=== PATIENT | male | born 1970 | race Caucasian/White ===

== ENCOUNTER 2017-11-12 15:16 | Emergency (ER) | payer OTHER, SELFPAY ==
[2017-11-12 15:30] VITALS: BP 136/87; PULSE 67; RESP 18; TEMP 36.2; O2SAT 97; BMI 26.9
[2017-11-12 16:35] LABS: Add Manual Diff / Slide Review NO; Basophils Percent Auto 1.2 % (0-2); Eosinophils Percent Auto 2.3 % (2-4); Hematocrit 45.3 % (41-53); Hemoglobin 15.5 g/dL (13.5-17.5); Lymphocytes Percent Auto 30.7 % (25-40); Mean Corpuscular HGB Conc 34.2 % (30-36); Mean Corpuscular Hemoglobin 30.4 PG (26-34); Mean Corpuscular Volume 88.8 fL (80-100); Monocytes Percent Auto 6.7 % (3-14); Neutrophils Absolute Auto 3600 /uL (3000-5900); Neutrophils Percent Auto 59.1 % (50-75); Platelet Count 265 X10^3/uL (150-400); Red Cell Distribution Width 13.2 % (11.6-14.8); White Blood Cell Count 6.1 X10^3/uL (4.5-11.0)
[2017-11-12 16:38] LABS: Alanine Aminotransferase 25 IU/L (21-72); Albumin 4.7 g/dL (3.5-5.0); Albumin Globulin Ratio 1.7 (1.0-2.8); Alkaline Phosphatase 56 U/L (38-126); Aspartate Aminotransferase 17 IU/L (17-59); Bilirubin Total 0.4 mg/dL (0.2-1.3); Blood Urea Nitrogen 8 mg/dL (9-20); Calcium 9.6 mg/dL (8.4-10.2); Carbon Dioxide 29 mmol/L (22-32); Chloride 104 mmol/L (98-107); Estimated Glomerular Filt Rate > 60.0 mL/min (>60); Globulin 2.7 g/dL (1.7-4.1); Glucose 90 mg/dL (70-100); HEMOLYSIS < 15 (0-50); Lipase 55 U/L (23-300); Potassium 4.2 mmol/L (3.4-5.1); Sodium 143 mmol/L (137-145); Total Protein 7.4 g/dL (6.3-8.2)
[2017-11-12] MEDS: SODIUM CHLORIDE 0.9% 1,000 ML 1000 ML IV (20:06)
[2017-11-12 20:10] VITALS: BP 151/101; PULSE 60; RESP 14; TEMP 36.9; O2SAT 99
[2017-11-12 20:18] LABS: Bacteria Urine None Seen; RBC Urine None Seen (0-5/HPF); WBC Urine None Seen (0-5/HPF)
--- NOTE | 2017-11-12 20:54 | DI.CT.S_ITS ---
PROCEDURE: CT ABDOMEN PELVIS W CON INDICATIONS: RIGHT LOWER QUADRANT PAIN TECHNIQUE: After the administration of intravenous contrast, 5 mm thick sections acquired from the diaphragm to the symphysis. 5 mm coronal and sagittal reformats were acquired. For radiation dose reduction, the following was used: automated exposure control, adjustment of mA and/or kV according to patient size. COMPARISON: None. FINDINGS: Image quality: Excellent. ABDOMEN: Lung bases: There is mild dependent atelectasis bilaterally. Heart size is normal. Solid organs: No focal hepatic lesions identified. Gallbladder appears within normal limits without calcified gallstones. Biliary system is non dilated. Pancreas enhances normally. Spleen is normal in size and enhancement. No adrenal nodules. Kidneys demonstrate normal size and enhancement, without hydronephrosis. Peritoneum and bowel: Bowel loops demonstrate normal wall thickness and caliber. The appendix is normal in appearance. There is mild fluid distention of a few distal small bowel loops with scattered air-fluid levels which may reflect a mild gastroenteritis. No free fluid or air. Nodes and vessels: No retroperitoneal or mesenteric adenopathy by size criteria. Aorta and inferior vena cava are normal in size. Miscellaneous: No ventral hernias. PELVIS: Genitourinary: Bladder wall thickness is normal. Miscellaneous: No inguinal hernias or adenopathy. Bones: No suspicious bony lesions. No vertebral body compression fractures. IMPRESSION: 1. No evidence of acute appendicitis. 2. Mild fluid distention of a few distal small bowel loops with scattered air-fluid levels may reflect a mild gastroenteritis. Dictated by: Janes Cross M.D. on 11/12/2017 at 21:51 Approved by: Janes Cross M.D. on 11/12/2017 at 21:54
--- NOTE | 2017-11-12 21:02 | ED_ITS ---
HPI - Abdominal Pain General Chief Complaint: Abdominal Pain Stated Complaint: POWER LOWER RIGHT SIDE Time Seen by Provider: 11/12/17 18:10 Source: patient Mode of arrival: ambulatory Limitations: no limitations History of Present Illness HPI narrative: patient is a 46-year-old male who presents with right lower quadrant pain ongoing for the last 8 days. It is nonradiating fairly persistent. He has had decreased appetite over the past couple of days. No hematuria no nausea vomiting or diarrhea. 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 It does hurt with breathing but not necessarily with movement. pain has not migrated MD complaint: abdominal pain Onset (ago): day(s) (8) Pain Consistency: constant Location: RLQ Quality: stabbing Radiation: none Related Data Home Medications Medication Instructions Recorded Confirmed oxycodone-acetaminophen [Percocet] 1 tab PO TID #0 08/11/12 11/12/17 albuterol sulfate [ProAir HFA] 1 puff INHALATION DIRECTED 11/12/17 11/12/17 zolpidem 3 tab PO BEDTIME 11/12/17 11/12/17 Allergies Allergy/AdvReac Type Severity Reaction Status Date / Time soy Allergy Hives Verified 11/12/17 15:51 SULFA Allergy Mild RASH Uncoded 11/12/17 15:50 Review of Systems Review of Systems GENERAL: Denies chills, fatigue, malaise, fever, sweats, travel HEENT: Denies sinus pain, ear pain, sore throat, difficulty swallowing, neck pain RESPIRATORY: Denies dyspnea, cough, wheezing, hemoptysis, sputum. CARDIOVASCULAR: Denies chest pain, palpitations, orthopnea, edema GASTROINTESTINAL: see HPI : Denies dysuria, frequency, incontinence, hematuria, urinary retention, flank pain. MUSCULOSKELETAL: Denies weakness, joint pain, or bony pain SKIN: No rash, no erythema, no pruritus NEUROLOGIC: Denies weakness, dizziness, headache, numbness, change in speech, confusion PSYCHIATRIC: No concerning psychosocial issues. 12 point review of systems is negative except for those stated above and HPI PFSH Medical History Chronic low back pain (Acute) Spinal stenosis (Acute) Surgical History H/O vasectomy (Acute) Social History Smoking Status: Former smoker Exam Initial Vital Signs Initial Vital Signs: Vital Signs Temperature 97.2 F L 11/12/17 15:30 Pulse Rate 67 11/12/17 15:30 Respiratory Rate 18 11/12/17 15:30 Blood Pressure 136/87 H 11/12/17 15:30 Pulse Oximetry 97 11/12/17 15:30 GENERAL: sitting up no acute distress HEENT: Head atraumatic,EOMI, pupils reactive, neck is supple CARDIOVASCULAR: Regular rate and rhythm without murmurs, rubs or gallops. RESPIRATORY: Breath sounds equal bilaterally, no wheezes rales or rhonchi. ABDOMEN: Soft, Right lower quadrant pain without guarding or rebound no flank pain negative Lu sign : No CVA tenderness EXTREMITIES: Normal range of motion, no clubbing or edema. Neurovascularly intact NEUROLOGICAL: Alert and oriented x4.Normal gait and speech. SKIN: Warm, dry, no laceration, no petechiae, no rashes or lesions. Course Orders Ordered: ED Orders 11/12/17 20:54 CT abdomen pelvis w con Stat Discontinued Medications Sodium Chloride (Normal Saline 0.9%) 1,000 mls @ 150 mls/hr IV CONT BRICE Last Infusion: 11/12/17 21:18 Dose: 0 mls/hr Admin: 11/12/17 20:06 Dose: 1,000 mls/hr Vital Signs - 8 hr 11/12/17 22:18 Pulse Rate 61 Respiratory Rate 16 Blood Pressure [Left Arm] 150/97 H Pulse Oximetry 100 MDM - Abdominal Pain Lab Data Attestation: I reviewed the patient's lab results. Result diagrams: 11/12/17 16:15 11/12/17 16:15 Lab Results 11/12/17 11/12/17 11/12/17 Range/Units 16:15 16:15 19:45 WBC 6.1 (4.5-11.0) X10^3/uL RBC 5.10 (4.5-5.9) X10^6/uL Hgb 15.5 (13.5-17.5) g/dL Hct 45.3 (41-53) % MCV 88.8 (80-100) fL MCH 30.4 (26-34) PG MCHC 34.2 (30-36) % RDW 13.2 (11.6-14.8) % Plt Count 265 (150-400) X10^3/uL Neut % (Auto) 59.1 (50-75) % Lymph % (Auto) 30.7 (25-40) % [place] % (Auto) 6.7 (3-14) % Eos % (Auto) 2.3 (2-4) % Baso % (Auto) 1.2 (0-2) % Neut # (Auto) 3600 (2129-2482) /uL Sodium 143 (137-145) mmol/L Potassium 4.2 (3.4-5.1) mmol/L Chloride 104 (98-107) mmol/L Carbon Dioxide 29 (22-32) mmol/L BUN 8 L (9-20) mg/dL Creatinine 0.80 (0.66-1.25) mg/dL Estimated GFR > 60.0 (>60) mL/min BUN/Creatinine Ratio 10.0 (6-22) Glucose 90 (70-100) mg/dL Calcium 9.6 (8.4-10.2) mg/dL Total Bilirubin 0.4 (0.2-1.3) mg/dL AST 17 (17-59) IU/L ALT 25 (21-72) IU/L Alkaline Phosphatase 56 (38-126) U/L Total Protein 7.4 (6.3-8.2) g/dL Albumin 4.7 (3.5-5.0) g/dL Globulin 2.7 (1.7-4.1) g/dL Albumin/Globulin Ratio 1.7 (1.0-2.8) Lipase 55 (23-300) U/L Urine Color Yellow Urine Appearance Clear Urine pH 7.0 (4.5-8.0) Ur Specific [place] 1.010 (1.000-1.035) Urine Protein Negative (Negative) Urine Glucose (UA) Negative (Normal) g/dL Urine Ketones Negative (NEGATIVE) Urine Occult Blood Negative (Negative) Urine Nitrate Negative (Negative) Urine Bilirubin Negative (NEGATIVE) Urine Urobilinogen 0.2 (0.2) E.U./dL Ur Leukocyte Esterase Negative (NEGATIVE) Urine RBC None seen (0-5/HPF) Urine WBC None seen (0-5/HPF) Urine Bacteria None seen (None) Ur Culture Indicated? Not Reportable Micro UA Comment Not Reportable Imaging Data CT scan - abdomen: Radiologist's impression: PROCEDURE: CT ABDOMEN PELVIS W CON INDICATIONS: RIGHT LOWER QUADRANT PAIN TECHNIQUE: After the administration of intravenous contrast, 5 mm thick sections acquired from the diaphragm to the symphysis. 5 mm coronal and sagittal reformats were acquired. For radiation dose reduction, the following was used: automated exposure control, adjustment of mA and/or kV according to patient size. COMPARISON: None. FINDINGS: Image quality: Excellent. ABDOMEN: Lung bases: There is mild dependent atelectasis bilaterally. Heart size is normal. Solid organs: No focal hepatic lesions identified. Gallbladder appears within normal limits without calcified gallstones. Biliary system is non dilated. Pancreas enhances normally. Spleen is normal in size and enhancement. No adrenal nodules. Kidneys demonstrate normal size and enhancement, without hydronephrosis. Peritoneum and bowel: Bowel loops demonstrate normal wall thickness and caliber. The appendix is normal in appearance. There is mild fluid distention of a few distal small bowel loops with scattered air-fluid levels which may reflect a mild gastroenteritis. No free fluid or air. Nodes and vessels: No retroperitoneal or mesenteric adenopathy by size criteria. Aorta and inferior vena cava are normal in size. Miscellaneous: No ventral hernias. PELVIS: Genitourinary: Bladder wall thickness is normal. Miscellaneous: No inguinal hernias or adenopathy. Bones: No suspicious bony lesions. No vertebral body compression fractures. IMPRESSION: 1. No evidence of acute appendicitis. 2. Mild fluid distention of a few distal small bowel loops with scattered air- fluid levels may reflect a mild gastroenteritis. Dictated by: Janes Cross M.D. on 11/12/2017 at 21:51 MDM Narrative Medical decision making narrative: patient appears nontoxic. He has had pain ongoing for the last 8 days nose symptoms of nausea vomiting or diarrhea. This does seem to be worse with deep breathing and some movements. Possibly abdominal strain. CT suggest mild gastroenteritis however he does not have those symptoms. It was negative for appendicitis. I discussed all findings with the patient. Education has been performed regarding treatment plan, diagnosis, warning signs and symptoms and all concerns have been addressed. Verbally agree with and understood all of the above. Discharge Plan Departure Patient Disposition: Home, Self-Care Clinical Impression: Abdominal wall strain Discharge Date/Time: 11/12/17 22:24 Interventions: ED Discharge Assessment Last Done: 11/12/17 22:24 Instructions: DI for Abdominal Muscle Strain Activity Restrictions/Additional Instructions: *You have been diagnosed with abdominal pain *What to do: possibly virus versus is all muscle strain. Blood work and CT and they are negative *Continue to take medications as directe *Follow up with your primary care provider in 2-3 days *Return to ER if you should have any new, worsening or concerning symptoms Prescriptions: No Action oxycodone-acetaminophen [Percocet] 5 MG/325 MG tablet 1 tab PO TID Qty: 0 RF: 0 zolpidem 5 mg tablet 3 tab PO BEDTIME RF: 0 albuterol sulfate [ProAir HFA] 90 mcg/actuation HFA aerosol inhaler 1 puff Inhalation DIRECTED RF: 0
[2017-11-12 21:04] LABS: Appearance Urine UA CLEAR; Bilirubin Urine UA NEGATIVE (NEGATIVE); Color Urine UA YELLOW; Glucose Urine UA NEGATIVE (Normal); Ketones Urine UA NEGATIVE (NEGATIVE); Leukocyte Esterase Urine UA NEGATIVE (NEGATIVE); Nitrite Urine UA Negative (Negative); Occult Blood Urine UA NEGATIVE (Negative); Protein Urine UA NEGATIVE (Negative); Urobilinogen Urine UA 0.2 E.U./dL (0.2)
[2017-11-12 22:18] VITALS: BP 150/97; PULSE 61; RESP 16; O2SAT 100
== END 2017-11-12 22:24 | disposition home or self-care (01) ==
PROVIDERS: Emergency Medicine; Emergency Provider Emergency Medicine; Family Provider Family Medicine; PCP Family Medicine
DX: S39.011A Strain of muscle, fascia and tendon of abdomen, initial encounter (principal)
CPT/HCPCS: 36591; 74177; 80053; 81001; 83690; 85025; 96360; 99283; 99284; Q9967

== ENCOUNTER 2020-06-03 12:31 | Emergency (ER) | payer OTHER, SELFPAY ==
[2020-06-03 12:55] VITALS: BP 164/92; PULSE 66; RESP 12; TEMP 36.1; O2SAT 100; BMI 23.7
--- NOTE | 2020-06-03 14:18 | PC.NURSE ---
Reports history of hemmorhoids 4 and 10 years ago. Strenuous activity over the weekend before symptoms started. Pt states he has tried all over the counter options with no relief.
--- NOTE | 2020-06-03 14:20 | ED_ITS ---
HPI - Skin/Abscess/Foreign Bdy <ROSALINA Landin - Last Filed: 06/03/20 14:31> General Chief complaint: Skin/Abscess/Foreign Body Stated complaint: states hemmrhoids Time Seen by Provider: 06/03/20 13:47 Source: patient Mode of arrival: Ambulatory Limitations: no limitations History of Present Illness HPI narrative: The patient is a 49-year-old male former smoker with history of hemorrhoids who presents with a chief complaint of a hemorrhoid. He states that he noticed it a few days ago, though it might have been present for a while. He states he had 1 removed 10 years ago, had a different one 4 years prior that was also removed. He states he has been using high-fiber, ensuring hydration, and using docusate 2 injuries not strain have bowel movements. He states he is increasingly painful with heavy lifting which he is trying to decrease. He states that he had 1 removed in the emergency department at an outside facility 10 years ago, where they had to ?hold him down to do. Related Data Home Medications Medication Instructions Recorded Confirmed oxycodone-acetaminophen [Percocet] 1 tab PO TID #0 08/11/12 11/12/17 albuterol sulfate [ProAir HFA] 1 puff INHALATION DIRECTED 11/12/17 11/12/17 zolpidem 3 tab PO BEDTIME 11/12/17 11/12/17 Previous Rx's Medication Instructions Recorded hydrocortisone [Proctosol HC] [address] BID-QID PRN 5 Days #30 06/03/20 g prednisone 40 mg PO DAILY 5 Days #10 tab 06/03/20 Allergies Allergy/AdvReac Type Severity Reaction Status Date / Time bee venom protein (honey bee) Allergy Mild Anaphylaxis Verified 06/03/20 13:00 soy Allergy Hives Verified 06/03/20 12:59 SULFA Allergy Mild RASH Uncoded 06/03/20 12:59 Review of Systems <ROSALINA Landin - Last Filed: 06/03/20 14:31> Review of Systems Narrative: GENERAL: Denies chills, fatigue, malaise, fever, sweats. HEENT: Denies sinus pain, ear pain, sore throat, difficulty swallowing, dizziness. RESPIRATORY: Denies dyspnea, cough, wheezing, hemoptysis, sputum. CARDIOVASCULAR: Denies chest pain, palpitations, orthopnea, edema, GASTROINTESTINAL: See HPI : See HPI MUSCULOSKELETAL: denies weakness, joint pain, or bony pain SKIN: Denies rash, skin lesions, or other NEUROLOGIC: Denies weakness, headache, numbness, change in speech, confusion, seizures, incoordination. PSYCHIATRIC: No concerning psychosocial issues. 12 point review of systems is negative except for those stated above Patient History <ROSALINA Landin - Last Filed: 06/03/20 14:31> Medical History Chronic low back pain Spinal stenosis Surgical History H/O vasectomy Social History Smoking Status: Former smoker Smoking Status: Former smoker Substance Use Type: marijuana Exam <ROSALINA Landin - Last Filed: 06/03/20 14:31> Narrative Exam Narrative: GENERAL: This is a well-nourished, well-developed patient, in no acute HEAD: Atraumatic. Normocephalic. No temporal or scalp tenderness. EYES: Pupils equal round and reactive. Extraocular motions intact. No scleral icterus. No injection or drainage. ENT: Nose without bleeding, purulent drainage or septal hematoma. Wearing a mask Airway patent. NECK: Trachea midline. No JVD or lymphadenopathy. Supple, nontender, no meningeal signs. CARDIOVASCULAR: Regular rate and rhythm RESPIRATORY: Clear to auscultation. Breath sounds equal bilaterally. No wheezes, rales, or rhonchi. No cough. No increased respiratory effort. No accessory muscle use. GASTROINTESTINAL: Abdomen soft, non-tender, nondistended. No hepato- splenomegaly, or palpable masses. No guarding. Active bowel sounds all 4 quadrants. Rectal exam with Tamie Camarena RN at bedside. Visible external hemorrhoid at approximately 10:00 a.m., soft to palpation EXTREMITIES: No clubbing, cyanosis, or edema. No joint tenderness, effusion, or edema noted. BACK: Nontender without deformity or crepitance. No flank tenderness. NEURO: AOx3. SKIN: No rash or erythema on visible skin Initial Vital Signs Initial Vital Signs: Vital Signs Temperature 97 F L 06/03/20 12:55 Pulse Rate 66 06/03/20 12:55 Respiratory Rate 12 06/03/20 12:55 Blood Pressure 164/92 H 06/03/20 12:55 Pulse Oximetry 100 06/03/20 12:55 <Diana Vaughn DO - Last Filed: 06/03/20 19:28> Initial Vital Signs Initial Vital Signs: Vital Signs Temperature 97 F L 06/03/20 12:55 Pulse Rate 66 06/03/20 12:55 Respiratory Rate 12 06/03/20 12:55 Blood Pressure 164/92 H 06/03/20 12:55 Pulse Oximetry 100 06/03/20 12:55 Scores <ROSALINA Landin - Last Filed: 06/03/20 14:31> GCS [place] coma scale eye opening: Spontaneous Abbie coma scale verbal response: Orientated Abbie coma scale motor response: Obey commands [place] coma scale total score: 15 Course <ROSALINA Landin - Last Filed: 06/03/20 14:31> Vital Signs Vital signs: Vital Signs - 8 hr 06/03/20 12:55 06/03/20 14:36 Temperature 97 F L Pulse Rate 66 64 Respiratory Rate 12 16 Blood Pressure 164/92 H 164/96 H Pulse Oximetry 100 99 <Diana Vaughn DO - Last Filed: 06/03/20 19:28> Vital Signs Vital signs: Vital Signs - 8 hr 06/03/20 12:55 06/03/20 14:36 Temperature 97 F L Pulse Rate 66 64 Respiratory Rate 12 16 Blood Pressure 164/92 H 164/96 H Pulse Oximetry 100 99 MDM - Skin/Abscess/Foreign Bdy <ROSALINA Landin - Last Filed: 06/03/20 14:31> MDM Narrative Medical decision making narrative: The patient is a 49-year-old male with history of hemorrhoids who presents with a chief complaint of hemorrhoid. It is soft to palpation, not thrombosed. I did discuss at length with the patient use of steroids, Proctosol, follow-up with surgery. He may need a primary care provider referral, so he plans on following up with him. Discussed come back to ER for acute concerns such as abdominal pain with fever, severe rectal bleeding etcetera. Patient has no questions or concerns upon discharge states understanding return precautions as well as follow-up care. Encouraged continued stopped stools, no heavy lifting. Discharge Plan Departure Patient Disposition: Home Clinical Impression: Hemorrhoid Qualifiers: Hemorrhoid type: unspecified Qualified Code(s): K64.9 - Unspecified hemorrhoids Instructions: Hemorrhoids (Alternative Therapy), DI for Hemorrhoids Activity Restrictions/Additional Instructions: Thank you for trusting us with your care today. As discussed, I sent 2 prescriptions to [facility] in [place]. I have attached information regarding hemorrhoids. As discussed, please be sure your stools are soft in avoid heavy lifting. Please come back to emergency department for any acute concerns such as abdominal pain with fever, GI bleeding etcetera Please follow-up with primary care provider. You may benefit from a referral to general surgeon. I have given you contact information to [facility] as well. Prescriptions: New hydrocortisone [Proctosol HC] 2.5 % cream with perineal applicator [address] BID-QID PRN (Reason: hemorrhoids) 5 Days Qty: 30 RF: 0 prednisone 20 mg tablet 40 mg PO DAILY 5 Days Qty: 10 RF: 0 No Action oxycodone-acetaminophen [Percocet] 5 MG/325 MG tablet 1 tab PO TID Qty: 0 RF: 0 zolpidem 5 mg tablet 3 tab PO BEDTIME RF: 0 albuterol sulfate [ProAir HFA] 90 mcg/actuation HFA aerosol inhaler 1 puff Inhalation DIRECTED RF: 0 Referrals: [facility] [Provider Group] Romie Bill MD [Primary Care Provider] - <Diana Vaughn, - Last Filed: 06/03/20 19:28> Cosign ED Attending Abyature Attestation: I was immediately available in the department for consultation. Documentation has been reviewed.
[2020-06-03 14:36] VITALS: BP 164/96; PULSE 64; RESP 16; O2SAT 99
== END 2020-06-03 14:37 | disposition home or self-care (01) ==
PROVIDERS: Emergency Provider Nurse Practitioner Family; Family Provider Family Medicine; PCP Family Medicine
DX: K64.9 Unspecified hemorrhoids (principal)
CPT/HCPCS: 99281

== ENCOUNTER 2021-04-27 15:22 | Emergency (ER) | payer OTHER, SELFPAY ==
[2021-04-27 15:33] VITALS: BP 149/100; PULSE 77; RESP 22; TEMP 36.6; O2SAT 99
--- NOTE | 2021-04-27 15:39 | DI.US.S_ITS ---
PROCEDURE: US SCROTUM INDICATIONS: RIGHT TESTICLE PAIN AND SWELLING TECHNIQUE: Real-time scanning was performed of the scrotum and testicles, with image documentation. Color and pulse Doppler interrogation was performed of both testicles. COMPARISON: None. FINDINGS: Right: Testicle is normal in size at 4.8 x 3.5 x 2.3 cm, and homogenous in echotexture. Increased epididymal vascularity and heterogenous the. Small epididymal cyst measures 2 mm. No hydrocele or varicoceles. Overlying scrotal skin is normal in thickness. Left: Testicle is normal in size at 4.9 x 3.9 x 2.3 cm, and homogeneous in echotexture. Increased epididymal vascularity. Small epididymal cyst measures 0.4 x 1.0 cm. No hydrocele or varicoceles. Overlying scrotal skin is normal in thickness. Doppler: Color and pulse Doppler demonstrate normal and symmetric arterial flow in both testicles. IMPRESSION: Bilateral increased epididymal vascularity in consistent with epididymitis. Small bilateral epididymal cysts Approved by: Fritz Miranda M.D. on 04/27/2021 at 16:01
[2021-04-27 19:22] VITALS: BP 173/92; PULSE 66; O2SAT 100
[2021-04-27] MEDS: DOXYCYCLINE HYCLATE 100 MG TABLET PO (19:51)
--- NOTE | 2021-04-27 21:14 | ED_ITS ---
HPI - Male Genitourinary <RYAN Avalos - Last Filed: 04/27/21 21:26> General Chief complaint: Urogenital-Male Stated complaint: Right testicle hurts Time Seen by Provider: 04/27/21 15:39 Source: patient Mode of arrival: Ambulatory History of Present Illness HPI Narrative: 50-year-old male presents to the emergency department for swollen scrotum and pain which began this morning. Patient reports a history of the same since his vasectomy years ago, and he usually needs to come to the emergency department for antibiotics. Patient reports that this episode is much worse. He denies any recent STI exposure. Patient denies any abdominal pain, groin pain, difficulty urinating, pain with urination, or burning. Patient denies any fever, nausea vomiting or diarrhea. Patient reports he has never had an injection of another medication but he has received doxycycline in the past for this. Related Data Home Medications Medication Instructions Recorded Confirmed oxycodone-acetaminophen 5 mg-325 1 tab PO TID #0 08/11/12 11/12/17 mg tablet (Percocet) albuterol sulfate 90 mcg/actuation 1 puff INHALATION DIRECTED 11/12/17 11/12/17 aerosol inhaler zolpidem 5 mg tablet 3 tab PO BEDTIME 11/12/17 11/12/17 Allergies Allergy/AdvReac Type Severity Reaction Status Date / Time bee venom protein (honey bee) Allergy Mild Anaphylaxis Verified 06/03/20 13:00 soy Allergy Hives Verified 06/03/20 12:59 SULFA Allergy Mild RASH Uncoded 06/03/20 12:59 Patient History <RYAN Avalos - Last Filed: 04/27/21 21:26> Medical History Chronic low back pain Spinal stenosis Surgical History H/O vasectomy Social History Smoking Status: Former smoker Smoking Status: Former smoker Substance Use Type: marijuana Exam <RYAN Avalos - Last Filed: 04/27/21 21:26> Narrative Exam Narrative: Independently reviewed vitals signs and nursing notes. General: Awake, alert, nontoxic, no cardiorespiratory distress Head/Neck: Atraumatic, neck full range of motion Eyes: EOMI, conjunctiva normal Nose: nares patent, no rhinorrhea Cardio: Regular rate and rhythm, no peripheral edema Respiratory: respirations unlabored without wheezing, stridor, or rales. No retractions. GI: Abdomen soft, nontender, no hernias : Exam deferred for scrotal ultrasound MSK: Moves all extremities, neurovascularly intact Skin: Normal capillary refill, no rash Neuro: Normal speech and cognition, normal gait Initial Vital Signs Initial Vital Signs: Vital Signs Temperature 97.8 F 04/27/21 15:33 Pulse Rate 77 04/27/21 15:33 Respiratory Rate 22 04/27/21 15:33 Blood Pressure 149/100 H 04/27/21 15:33 Pulse Oximetry 99 04/27/21 15:33 <Tao Castro DO - Last Filed: 05/05/21 04:51> Initial Vital Signs Initial Vital Signs: Vital Signs Temperature 97.8 F 04/27/21 15:33 Pulse Rate 77 04/27/21 15:33 Respiratory Rate 22 04/27/21 15:33 Blood Pressure 149/100 H 04/27/21 15:33 Pulse Oximetry 99 04/27/21 15:33 Course <RYAN Avalos - Last Filed: 04/27/21 21:26> Orders Ordered: Discontinued Medications Doxycycline Hyclate (Doxycycline Hyclate 100 Mg Tablet) 100 mg PO NOW ONE Stop: 04/27/21 19:48 Last Admin: 04/27/21 19:51 Dose: 100 mg Documented by: IVORY Vital Signs Vital signs: Vital Signs - 8 hr 04/27/21 15:33 04/27/21 19:22 Temperature 97.8 F Pulse Rate 77 66 Respiratory Rate 22 Blood Pressure 149/100 H 173/92 H Pulse Oximetry 99 100 <DO Cristian Heller Last Filed: 05/05/21 04:51> Orders Ordered: Discontinued Medications Doxycycline Hyclate (Doxycycline Hyclate 100 Mg Tablet) 100 mg PO NOW ONE Stop: 04/27/21 19:48 Last Admin: 04/27/21 19:51 Dose: 100 mg Documented by: AUPDIKE Vital Signs Vital signs: Vital Signs - 8 hr 04/27/21 15:33 04/27/21 19:22 Temperature 97.8 F Pulse Rate 77 66 Respiratory Rate 22 Blood Pressure 149/100 H 173/92 H Pulse Oximetry 99 100 MDM - Male Genitourinary <Yvonne Los BhatiazainaRYAN - Last Filed: 04/27/21 21:26> Lab Data Labs: Urine Dip Bedside Urine Glucose Negative Bedside Urine Bilirubin - Negative Bedside Urine Ketone - Negative Urine Specific [place] 1.015 Bedside Urine Occult Blood - Negative Bedside Urine pH 7.5 Bedside Urine Protein - Negative Bedside Urine Urobilinogen - Negative Bedside Urine Nitrite - Negative Bedside Urine Leukocytes - Negative Esterase Imaging Data 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 US SCROTUM ? INDICATIONS:? RIGHT TESTICLE PAIN AND SWELLING ? TECHNIQUE:? Real-time scanning was performed of the scrotum and testicles, with image documentation.? Color and pulse Doppler interrogation was performed of both testicles.? ? COMPARISON:? None. ? FINDINGS:? ? Right:? Testicle is normal in size at 4.8 x 3.5 x 2.3 cm, and homogenous in echotexture.? Increased epididymal vascularity and heterogenous the.? Small epididymal cyst measures 2 mm.? No hydrocele or varicoceles.? Overlying scrotal skin is normal in thickness.? ? Left:? Testicle is normal in size at 4.9 x 3.9 x 2.3 cm, and homogeneous in echotexture.? Increased epididymal vascularity.? Small epididymal cyst measures 0.4 x 1.0 cm.? No hydrocele or varicoceles.? Overlying scrotal skin is normal in thickness.? ? Doppler:? Color and pulse Doppler demonstrate normal and symmetric arterial flow in both testicles.? ? IMPRESSION:? ? Bilateral increased epididymal vascularity in consistent with epididymitis. Small bilateral epididymal cysts ? ? ? Approved by: Fritz Miranda M.D. on 04/27/2021 at 16:01? [facility] Narrative Medical decision making narrative: 50-year-old male with history of epididymitis after a vasectomy years ago p resents to the emergency department with scrotal edema which started this morning and tenderness. Ultrasound shows bilateral increased epididymal vascularity in consistent with epididymitis, Small bilateral epididymal cysts. Patient denies ever taking ceftriaxone in the past but does remember taking doxycycline with improvement in his symptoms. Patient was prescribed 1 week course of doxycycline and instructed to follow-up with his PCP or return to the emergency department for any worsening. Patient is appropriate and amenable to discharge home. Vital signs are stable on repeat examination is unremarkable. Patient has been informed of results. Patient has been given strict return to ER precautions for any new or worsening symptoms. Patient understands to follow up closely with outpatient providers as instructed. Patient understands plan and agrees to discharge home. All questions and concerns answered at this time. ? <Tao Castro, DO - Last Filed: 05/05/21 04:51> Lab Data Labs: Urine Dip Bedside Urine Glucose Negative Bedside Urine Bilirubin - Negative Bedside Urine Ketone - Negative Urine Specific [place] 1.015 Bedside Urine Occult Blood - Negative Bedside Urine pH 7.5 Bedside Urine Protein - Negative Bedside Urine Urobilinogen - Negative Bedside Urine Nitrite - Negative Bedside Urine Leukocytes - Negative Esterase Discharge Plan Departure Patient Disposition: Home Clinical Impression: Epididymitis Instructions: Epididymitis, Epididymal Cyst Activity Restrictions/Additional Instructions: *You have been diagnosed with [epididymitis] as you know. If this is not clear up in the next couple of days, please return for a shot of ceftriaxone. Since you have never had this before in recent experiences, I did not give it to to day. Usually we treat this with 2 antibiotics but if this clears it up, great for you. I hope that you feel better soon. *What to do: *Please continue to take your regular medications as directed. [ x] New medication prescriptions sent to your pharmacy: [[facility] ] [ ] New medication written as a paper prescription [ ] No new medications given *Please follow up with your primary care provider in 2-3 days, call for an appointment. Let them know you were seen in the Emergency Department and that we ask that you be seen in follow up. We will electronically transmit a record of today's note if your PCP is in our system *If you do not have a primary care provider please contact the [facility] Resource line at [phone]. They will ask some questions about your medical history and help get you set up with a doctor in the community. *Return to Emergency Department if you should have any new, worsening or concerning symptoms, such as [fever greater than 101F, chills, worsening pain, persistent vomiting or other bothersome symptoms] Prescriptions: No Action oxycodone-acetaminophen [Percocet] 5 MG/325 MG tablet 1 tab PO TID Qty: 0 0RF zolpidem 5 mg tablet 3 tab PO BEDTIME 0RF albuterol sulfate [ProAir HFA] 90 mcg/actuation HFA aerosol inhaler 1 puff Inhalation DIRECTED 0RF Referrals: Romie Bill MD [Primary Care Provider] - <Tao Castro DO - Last Filed: 05/05/21 04:51> Cosign ED Attending Cosluisanaature Attestation: I was immediately available in the department for consultation. This documentation has been reviewed and I agree with assessment and plan. Supervised by Tao Castro DO
== END 2021-04-27 19:56 | disposition home or self-care (01) ==
PROVIDERS: Emergency Provider Nurse Practitioner Critical Care Medicine; Family Provider Family Medicine; PCP Family Medicine
DX: N45.1 Epididymitis (principal)
CPT/HCPCS: 76870; 81003; 99283